=== PATIENT | female | born 1950 | race Two or more races ===

== ENCOUNTER → 2024-11-16 | Outpatient (CLI) | payer MEDICARE, SELFPAY ==
--- NOTE | 2024-11-16 10:30 | XR_ITS ---
Examination: Breast ultrasound, unilateral, left complete Date and time of exam: November 16, 2024 1025 hours INDICATIONS: Left breast sonogram May 18, 2024 4:00 nodule 5 mm 11:00 scarred 10 mm, personal history breast cancer 11:00 position 2021 post lumpectomy Technique: Real-time nicole scale ultrasonographic imaging performed left breast including all 4 quadrants as well as nipple retroareolar and axillary region. Findings: Multiple benign cysts 4:00 circumscribed nodule 5 x 5 mm 11:00 probable dense calcifications 6 x 6 mm 3:00 scar formation 10 x 15 mm IMPRESSION: BI-RADS Category 0: Incomplete: Need additional imaging evaluation Recommend diagnostic mammography follow-up Recommend 3 month left breast sonogram follow-up
== END | disposition home or self-care (01) ==
PROVIDERS: PCP Nurse Practitioner Family; Referring Provider Surgery; Visit Provider Surgery
DX: R92.8 Other abnormal and inconclusive findings on diagnostic imaging of breast (principal); C50.412 Malignant neoplasm of upper-outer quadrant of left female breast
CPT/HCPCS: 76641

== ENCOUNTER → 2025-05-08 | Outpatient (CLI) | payer MEDICARE, SELFPAY ==
--- NOTE | 2025-05-08 13:00 | XR_ITS ---
Examination: Breast ultrasound, unilateral, left complete Date and time of exam: May 08, 2025, 1348 hours INDICATIONS: History left breast cancer in the 11 o'clock position lumpectomy March 2022, left breast sonogram November 16, 2024 11:00 dense calcifications 6 mm 3:00 scar formation 10 x 15 mm, 4:00 nodule 5 x 5 mm Technique: Real-time nicole scale ultrasonographic imaging performed left breast including all 4 quadrants as well as nipple retroareolar and axillary region. Findings: 1:00 circumscribed nodule 4 x 5 mm 3:00 circumscribed nodule 8 x 5 mm 4:00 circumscribed nodule 4 x 5 mm 11:00 cyst 12 x 10 mm 11:00 cyst 7 x 7 mm Smaller cysts 11:00 calcification 8 x 4 mm IMPRESSION: BI-RADS Category 3: Probably benign findings 1 additional 6-month left breast sonogram follow-up is needed to document stability of multiple solid nodules described above
--- NOTE | 2025-05-08 13:30 | XR_ITS ---
Examination: Diagnostic digital mammography, bilateral Computer aided detection 3-D breast Tomosynthesis, bilateral Date and time of exam: May 08, 2025, 1407 hours INDICATIONS: Personal history left breast cancer, lumpectomy, history of ultrasound-guided left breast biopsy Technique: Nonmagnified MLO, CC views of the breasts to been obtained, reconstructed from 3-D Tomosynthesis images. R2 computer aided detection program utilized for evaluation of suspicious masses and/or abnormal calcifications. 3-D Tomosynthesis images obtained. Findings: The breasts are heterogeneously dense, which may obscure small masses 10 mm nodule indistinct margins 9 o'clock position right breast Impression: BI-RADS Category 0: Incomplete: Need additional imaging evaluation Recommend follow-up spot tomographic views of 9:00 nodule right breast.
== END | disposition home or self-care (01) ==
PROVIDERS: PCP Nurse Practitioner Family; Referring Provider Surgery; Visit Provider Surgery
DX: N63.15 Unspecified lump in the right breast, overlapping quadrants (principal); N63.12 Unspecified lump in the right breast, upper inner quadrant; N63.14 Unspecified lump in the right breast, lower inner quadrant; C50.412 Malignant neoplasm of upper-outer quadrant of left female breast
CPT/HCPCS: 76641; 77062; 77066; G0279

== ENCOUNTER → 2025-05-30 | Outpatient (CLI) | payer MEDICARE, SELFPAY ==
--- NOTE | 2025-05-30 13:00 | XR_ITS ---
Examination: Diagnostic digital mammography, unilateral, right Computer aided detection 3-D breast Tomosynthesis, unilateral Date and time of exam: May 30, 2025, 1258 hours INDICATIONS: Mammogram May 08, 2000 2510 mm nodule indistinct margins 9 o'clock position right breast Technique: Nonmagnified MLO, CC views of the left breast have been obtained, reconstructed from 3-D Tomosynthesis images. R2 computer aided detection program utilized for evaluation of suspicious masses and/or abnormal calcifications. 3-D Tomosynthesis images obtained. Findings: Right scattered areas of fibroglandular density Focal asymmetry remains outer right breast indistinct margins, 10 mm Impression: BI-RADS category 0: Incomplete: Need additional imaging evaluation Recommend follow-up right breast sonography
== END | disposition home or self-care (01) ==
LOC: CDIM 12:49
PROVIDERS: Referring Provider Surgery; Visit Provider Surgery
DX: R92.8 Other abnormal and inconclusive findings on diagnostic imaging of breast (principal)
CPT/HCPCS: 77061; 77065; G0279